=== PATIENT | female | born 2000 | race Caucasian/White ===

== ENCOUNTER 2024-02-11 15:03 | Emergency (ER) | payer OTHER, SELFPAY ==
[2024-02-11 15:05] VITALS: BP 159/100
--- NOTE | 2024-02-11 16:14 | ED.GENMED ---
History of Present Illness
General
Chief Complaint: Heart Rate Problem
Source: patient
Time Seen by Provider: 02/11/24 15:45
Travel History
Have you had any contact with someone who has COVID-19?: No
Do you have any symptoms of coronavirus? Fever > 100 degrees, chills, cough, shortness of breath, sore throat, loss of taste or smell, muscle aches, or headache?: No
History of Present Illness
History of Present Illness:
23-year-old female with past medical history of previous SVT status post ablation presenting to the emergency department for evaluation of feeling jittery, intermittent palpitations and generally feeling unwell. She notes that she is currently
roughly 9 weeks based off of her last menstrual period and has a visit with her BILLING ANALYST next week for an ultrasound. She denies any abdominal pain, vaginal bleeding or discharge. Patient states the feeling is as if she had too much caffeine
but notes she has not had any caffeine intake. Symptoms have been ongoing for about 2 weeks. She initially thought the symptoms may be related to stopping her daily half milligram Xanax and instead of taking this every day she had been taking it
every other day but states her BILLING ANALYST and psychiatrist recommend that she still take this daily which she has been doing over the last week so she has not sure if this may be related. Patient does admit to generalized anxious feeling over her
as this is her first
Past History
Past History
ED Past Medical History: Arrthythmia
ED Past Surgical History: Cardiac and Tonsilectomy
Social History
Tobacco: Non-smoker
Alcohol: None
Drug: None
Personal:
Living: with family
Review of Systems
Review of Systems
All Other Systems: ROS reviewed and negative except as documented in HPI and ROS
Phy Exam
Physical Exam
Physical Exam:
GENERAL: Alert , in no apparent distress
EYE: conjunctiva clear
NECK: Supple
ENT: o/p clr, mmm.
CARDIAC: Regular rate and rhythm
LUNGS: Clear breath sounds bilaterally, no acute respiratory distress, no wheezes/rales/rhonchi
Abdomen: Soft, nontender, nondistended
NEUROLOGICAL: Alert and oriented
SKIN: Warm and dry, skin intact.
MUSCULOSKELETAL: well perfused.
PSYCH: Normal and appropriate interaction.
Scores
Heart Failure Risk
Heart Failure Risk Score: Not Applicable
Heart Score for Chest Pain Patients
STEMI patient?: Not applicable
Withdrawal Assessment of Alcohol
Withdrawal Assessment Completed?: Not applicable
Course
Orders/Labs/Results
Orders:
Orders
02/11/24 15:08
EKG [Electrocardiogram (*1)] Urgent
Reason for Study: Palpitations
EKG- Treatment ONCE
02/11/24 16:21
Complete Blood Count/With Diff Urgent
Comprehensive Metabolic Panel Urgent
Urinalysis Reflex To Culture Urgent
Date Specimen was Collected: 02/11/24
Time Specimen was Collected: 16:16
Urine Microscopic Reflex Cult Urgent
Urine Culture Urgent
ANA Source: U
Specimen Description:
Date Specimen was Collected: 02/11/24
Time Specimen was Collected: 16:16
Abnormal Lab Results
02/11/24
16:21
MCHC 31.9 L g/dL
(33.0-37.0)
Abs Immat Gran (auto) 0.1 H 10^3/uL
(0-0.05)
Total Bilirubin 0.1 L mg/dl
(0.2-1.3)
Leukocyte Esterase Rfl 1+ A
(Negative)
Urine WBC (Reflex) 11-15 A /HPF
(0-5)
Urine Bacteria (Reflex) Moderate A
(Negative)
02/11/24 16:21
02/11/24 16:21
Vital Signs
Initial and Last Documented VS:
Initial Vital Signs
Temp Pulse Resp BP Pulse Ox
98.1 F 109 16 159/100 97
02/11/24 15:05 02/11/24 15:05 02/11/24 15:05 02/11/24 15:05 02/11/24 15:05
Last Documented Vital Signs
Temp Pulse Resp BP Pulse Ox
98.1 F 88 16 141/76 100
02/11/24 15:05 02/11/24 17:09 02/11/24 17:09 02/11/24 17:09 02/11/24 17:09
MDM/Problems Addressed
Differential Diagnosis Includes:
Electrolyte disturbance, related symptoms, anxiousness/anxiety, cardiac dysrhythmia
MDM/Problems Addressed:
23-year-old female present emergency department for evaluation of shakiness and generally feeling unwell over the last couple of weeks. She thought symptoms may have initially been related to taking her initially daily Xanax to every other day over
the last week has been taking it every day at the direction of her COMPOUNDER HELPER and psychiatrist. Patient is in no acute distress in the emergency department. She does admit to anxiety and uneasiness over this being her first . Will check labs
and urinalysis. Patient has no abdominal complaints or symptoms that would be suggestive of an ectopic . She has an ultrasound scheduled for February 16 next week.
*Pulse Oximetry
Patient hypoxic: no
*Critical Care Note
Total Time (30-74mins, 75-104mins- exclusive of procedures): Not Applicable
Patient Management
Escalation/DeEscalation of care consider admission/obs:
Patient's labs unremarkable. She remains hemodynamically stable. She will follow-up with primary care physician for blood pressure recheck in the next 1 to 2 weeks. Aware of return precautions and otherwise stable for outpatient follow-up.
ED Attending Note
-
Portions of this chart may have been created with voice recognition software.� Occasional wrong word or��sound alike� substitutions may have occurred due to the inherent limitations of voice recognition software.
Discharge Plan
Departure
Patient Disposition: Home (Routine Discharge)
Date of Disposition: 02/11/24
Time of Disposition: 16:59
Patient with high blood pressure during this ER visit?: Yes
Discharge Problem:
First trimester
Instructions: symptoms
Prescriptions:
No Action
metoclopramide HCl [Reglan] 10 mg tablet
10 mg PO Q8HPRN PRN (Reason: nausea and vomiting) Qty: 9 0RF
Referrals:
Trang Chin MD [Family Provider] -
Interventions
Interventions:
*Risk Screen - Suicide Last Done: 02/11/24 16:25
*General Assessment Last Done: 02/11/24 15:05
*Neglect/Abuse Screening Last Done: 02/11/24 16:25
ED- Fall Risk Assessment Last Done: 02/11/24 17:11
*ED COVID-19 Vaccine History Last Done: 02/11/24 15:05
*Nursing Disposition Last Done: 02/11/24 17:11
ED- Cardiac Assessment Last Done: 02/11/24 16:25
ED- Pulmonary Assessment Last Done: 02/11/24 16:25
Discharge Date and Time
Discharge Date/Time: 02/11/24 17:11
[2024-02-11 16:44] LABS: % Basophils 0.4 % (0-2); % Eosinophils 0.8 % (0-6); % Immature Granulocytes 0.5 % (0-0.5); % Lymphocytes 28.8 % (20.5-51.1); % Neutrophils 63.5 % (42.2-75.2); Absolute Eosinophils 0.1 10^3/uL (0-0.7); Absolute Immature Granulocytes 0.1 10^3/uL (0-0.05); Absolute Lymphocytes 2.9 10^3/uL (1.2-3.4); Absolute Monocytes 0.6 10^3/uL (0.1-0.6); Absolute Neutrophils 6.4 10^3/uL (1.4-6.5); Hematocrit 37.9 % (37.0-47.0); Hemoglobin 12.1 g/dL (12.0-16.0); Mean Corp Hgb Conc. 31.9 g/dL (33.0-37.0); Mean Corpuscular Hgb 27.3 pg (27.0-31.0); Mean Corpuscular Volume 85.4 fL (81.0-99.0); Mean Platelet Volume 9.3 fL (7.4-10.4); Nucleated Red Blood Cells % 0 %; Platelet Count 391 10^3/uL (130-400); Red Blood Cell Count 4.44 10^6/uL (4.20-5.40); Red Cell Dist. Width 13.4 % (11.5-14.5); White Blood Cell Count 10.1 10^3/uL (4.8-10.8)
[2024-02-11 16:49] LABS: Urine Albumin Negative (Neg - Trace); Urine Bilirubin Negative (Negative); Urine Character Clear (Clear); Urine Color Yellow; Urine Glucose Negative (Negative); Urine Ketone Negative (Negative); Urine Leukocyte 1+ (Negative); Urine Nitrite Negative (Negative); Urine Occult Blood Negative (Negative); Urine Specific Gravity 1.005 (<1.030); Urine Urobilinogen Negative (Neg - 1+)
[2024-02-11 16:57] LABS: Urine Squamous Cell >30 /LPF (Few)
[2024-02-11 16:58] LABS: ALT (SGPT) 21 U/L (0-35); AST (SGOT) 22 U/L (14-36); Albumin 4.4 g/dl (3.5-5.0); Alkaline Phosphatase 76 U/L (38-126); Blood Urea Nitrogen 9 mg/dl (7-17); Calcium 9.8 mg/dl (8.4-10.2); Carbon Dioxide 24 mmol/L (22-30); Chloride 101 mmol/L (98-107); Glucose 92 mg/dl (70-99); Potassium 4.1 mmol/L (3.5-5.1); Sodium 136 mmol/L (135-145); Total Bilirubin 0.1 mg/dl (0.2-1.3); Total Protein 7.5 g/dl (6.3-8.2); Urine Bacteria Moderate (Negative); Urine Red Blood Cell 0-2 /HPF (0-2); eGFR > 60.00
[2024-02-11 17:09] VITALS: BP 141/76
== END 2024-02-11 17:11 | disposition home or self-care (01) ==
LOC: EMR 15:03
PROVIDERS: Physician Assistant Medical; EMERGENCY PHYSICIAN Emergency Medicine; FAMILY PHYSICIAN Family Medicine
DX: O99.341 Other mental disorders complicating pregnancy, first trimester (principal); F41.9 Anxiety disorder, unspecified; Z3A.09 9 weeks gestation of pregnancy; R03.0 Elevated blood-pressure reading, without diagnosis of hypertension
CPT/HCPCS: 99284; 80053; 81003; 81015; 85025; 87086; 93005

== ENCOUNTER → 2024-02-17 13:36 | Outpatient (REF) | payer OTHER, SELFPAY | LOC: HWRAD 13:36 | PROVIDERS: ATTENDING PHYSICIAN Nurse Practitioner Family; FAMILY PHYSICIAN Physician Assistant Medical | DX: Z34.90 Encounter for supervision of normal pregnancy, unspecified, unspecified trimester (principal) | CPT/HCPCS: 76801; 76817 ==

== ENCOUNTER 2024-02-25 05:44 | Emergency (ER) | payer OTHER, SELFPAY ==
[2024-02-25 05:48] VITALS: BP 169/100
[2024-02-25 06:10] VITALS: BMI 38.9
[2024-02-25 06:24] LABS: % Basophils 0.4 % (0-2); % Eosinophils 1.3 % (0-6); % Immature Granulocytes 0.4 % (0-0.5); % Lymphocytes 34.8 % (20.5-51.1); % Monocytes 4.9 % (1.7-9.3); % Neutrophils 58.2 % (42.2-75.2); Absolute Basophils 0.1 10^3/uL (0-0.2); Absolute Eosinophils 0.2 10^3/uL (0-0.7); Absolute Immature Granulocytes 0.1 10^3/uL (0-0.05); Absolute Monocytes 0.6 10^3/uL (0.1-0.6); Absolute Neutrophils 6.6 10^3/uL (1.4-6.5); Hemoglobin 12.7 g/dL (12.0-16.0); Mean Corp Hgb Conc. 33.4 g/dL (33.0-37.0); Mean Corpuscular Hgb 27.7 pg (27.0-31.0); Mean Platelet Volume 9.2 fL (7.4-10.4); Nucleated Red Blood Cells % 0 %; Platelet Count 419 10^3/uL (130-400); Red Blood Cell Count 4.58 10^6/uL (4.20-5.40); Red Cell Dist. Width 13.2 % (11.5-14.5); White Blood Cell Count 11.4 10^3/uL (4.8-10.8)
--- NOTE | 2024-02-25 06:27 | ED.GENMED ---
History of Present Illness
General
Chief Complaint: Problems
Source: patient
Exam Limitations: none
Time Seen by Provider: 02/25/24 06:16
Travel History
Have you had any contact with someone who has COVID-19?: No
Do you have any symptoms of coronavirus? Fever > 100 degrees, chills, cough, shortness of breath, sore throat, loss of taste or smell, muscle aches, or headache?: No
History of Present Illness
History of Present Illness:
See MDM
Past History
Past History
ED Past Medical History: Arrthythmia
ED Past Surgical History: Cardiac and Tonsilectomy
Social History
Tobacco: Non-smoker
Alcohol: None
Drug: None
Personal:
Living: with family
Phy Exam
Physical Exam
Physical Exam:
See MDM
Course
Orders/Labs/Results
Orders:
Orders
02/25/24 06:15
Complete Blood Count/With Diff Urgent
Comprehensive Metabolic Panel Urgent
HCG, Beta Quantitative [Beta HCG Quantitative] Urgent
Is this a screen?: No
02/25/24 06:17
US W Transvaginal Urgent
Reason For Exam: , bleeding
02/25/24 07:48
Ketorolac [Toradol] 30 mg IV NOW STA
Abnormal Lab Results
02/25/24
06:15
WBC 11.4 H 10^3/uL
(4.8-10.8)
Plt Count 419 H 10^3/uL
(130-400)
Abs Immat Gran (auto) 0.1 H 10^3/uL
(0-0.05)
Absolute Neuts (auto) 6.6 H 10^3/uL
(1.4-6.5)
Absolute Lymphs (auto) 4.0 H 10^3/uL
(1.2-3.4)
Carbon Dioxide 19 L mmol/L
(22-30)
Glucose 106 H mg/dl
(70-99)
02/25/24 06:15
02/25/24 06:15
Vital Signs
Initial and Last Documented VS:
Initial Vital Signs
Temp Pulse Resp BP Pulse Ox
98.3 F 100 20 169/100 99
02/25/24 05:48 02/25/24 05:48 02/25/24 05:48 02/25/24 05:48 02/25/24 05:48
Last Documented Vital Signs
Temp Pulse Resp BP Pulse Ox
98.3 F 77 16 146/85 96
02/25/24 05:48 02/25/24 07:28 02/25/24 07:28 02/25/24 07:28 02/25/24 07:28
Information
Weeks gestation: N/A
Location: N/A
MDM/Problems Addressed
Differential Diagnosis Includes:
HPI and MDM Narrative:
23-year-old female G1, P0 at approximately 8 to 10 weeks gestation is presenting with vaginal bleeding and abdominal cramping. Patient had an ultrasound few weeks ago showing possible early gestation. Patient has developed vaginal spotting for the
past few days but significant vaginal bleeding over the past several hours. Patient states the clots are large and the bleeding is heavier than a normal menstrual cycle. Patient took Tylenol prior to arrival and understands that this is likely a
miscarriage
Given her symptoms, will repeat ultrasound
Physical exam
General: Well appearing and non-toxic
HEENT: protecting airway
Neck: appears supple
CV: No evidence of cyanosis
Resp: No accessory muscle use
Abd: Non-distended. No significant tenderness no
Extremities: No deformities
Neuro: alert
Psych: Normal affect
Skin: Intact
Problems Addressed including Acute and Chronic Conditions affecting care:
1. Vaginal bleeding
Acuity: acute
Prognosis: stable
Details: Given her history, there is concern for miscarriage. Will repeat ultrasound
Updates
7:30 AM radiology called indicating AB in progress. There is still a gestational sac but it is moving towards the cervix
7:45 AM discussed the findings with patient and significant other. They were expecting this diagnosis. She is now passing tissue. We discussed that she will continue to have cramping and bleeding and discussed expectant management
Patient showed me lab results on her phone indicating blood type O+
Differential Diagnosis (but not limited to): Miscarriage, ectopic
Testing considered:
Drug therapy (if applicable): OTC meds, please see d/c instruction regarding Rx drugs
Amount and/or Complexity of Data Reviewed
Clinical info obtained from: Patient
External data reviewed: Recent ultrasound showing possible early
Labs I independently reviewed (but not limited to): Hemoglobin normal
Radiology: Ultrasound report reviewed
Pulse Ox: not hypoxic
EKG independently reviewed: N/A
Driver/Refuse Collector: N/A
Critical Care: N/A
Risk of Complication:
Social Determinants of health: Good social support
Discussed with other providers: Radiology
Escalation of Care includes Admit/Obs: After being observed in the Emergency Department, pt stable for discharge.
Occasional wrong word or 'sound a like' substitutions may have occurred due to the inherent limitations of voice recognition software. Read the chart carefully and recognize, using context, where substitutions have occurred.
*Critical Care Note
Total Time (30-74mins, 75-104mins- exclusive of procedures): Not Applicable
ED Attending Note
-
Portions of this chart may have been created with voice recognition software.� Occasional wrong word or��sound alike� substitutions may have occurred due to the inherent limitations of voice recognition software.
Discharge Plan
Departure
Patient Disposition: Home (Routine Discharge)
Date of Disposition: 02/25/24
Time of Disposition: 07:49
Patient with high blood pressure during this ER visit?: Yes
Discharge Problem:
Miscarriage
Instructions: Miscarriage (DC), BLOOD PRESSURE
Prescriptions:
No Action
metoclopramide HCl [Reglan] 10 mg tablet
10 mg PO Q8HPRN PRN (Reason: nausea and vomiting) Qty: 9 0RF
Referrals:
UNKNOWN - PT DOES,NOT KNOW [Family Provider] -
Activity Restrictions/Additional Instructions:
As we discussed, the ultrasound confirms that you are actively having a miscarriage. You will likely continue to have cramping and bleeding for the next several days. Please talk to your OB. Please return for worsening symptoms or persistent
bleeding.
Interventions
Interventions:
*Risk Screen - Suicide Last Done: 02/25/24 05:48
*General Assessment Last Done: 02/25/24 05:48
*Neglect/Abuse Screening Last Done: 02/25/24 05:48
ED- Fall Risk Assessment Last Done: 02/25/24 05:48
*ED COVID-19 Vaccine History Last Done: 02/25/24 05:48
ED-Female Genitourinary Assessment Last Done: 02/25/24 06:10
Discharge Date and Time
Print Language: ARMENIAN
[2024-02-25 06:44] LABS: ALT (SGPT) 19 U/L (0-35); AST (SGOT) 20 U/L (14-36); Albumin 4.6 g/dl (3.5-5.0); Alkaline Phosphatase 95 U/L (38-126); Blood Urea Nitrogen 10 mg/dl (7-17); Carbon Dioxide 19 mmol/L (22-30); Chloride 105 mmol/L (98-107); Estimated Creatinine Clearance > 125 ml/min; Glucose 106 mg/dl (70-99); Potassium 4.1 mmol/L (3.5-5.1); Sodium 136 mmol/L (135-145); Total Bilirubin 0.2 mg/dl (0.2-1.3); Total Protein 7.8 g/dl (6.3-8.2); eGFR > 60.00
[2024-02-25 07:28] VITALS: BP 146/85
[2024-02-25] MEDS: TORADOL 30 MG IV (08:07)
--- NOTE | 2024-02-25 08:13 | EDRN ---
Reviewed discharge instructions with patient. Verbalized understanding.
[2024-02-25 08:15] VITALS: BP 126/84
== END 2024-02-25 08:16 | disposition home or self-care (01) ==
LOC: EMR 05:44
PROVIDERS: EMERGENCY PHYSICIAN Student in an Organized Health Care Education/Training Program
DX: O03.9 Complete or unspecified spontaneous abortion without complication (principal)
CPT/HCPCS: 99284; 96374; 76801; 76817; 80053; 84702; 85025